=== PATIENT | female | born 1990 | race Caucasian/White ===

== ENCOUNTER → 2024-10-27 | Outpatient (CLI) | payer OTHER, SELFPAY ==
[2024-10-28 09:50] LABS: BVAG Candida Negative (Negative); Bacterial Vaginosis Markers Negative (Negative); Candida glabrata Negative (Negative); Candida krusei PCR Negative (Negative); Trichomonas Negative (Negative)
== END | disposition home or self-care (01) ==
LOC: SLDO 13:02
PROVIDERS: Referring Provider Specialist; Visit Provider Specialist
DX: B37.89 Other sites of candidiasis (principal); N76.0 Acute vaginitis; A59.01 Trichomonal vulvovaginitis
CPT/HCPCS: 81514

== ENCOUNTER 2025-03-26 17:00 | Emergency (ER) | payer OTHER, SELFPAY ==
[2025-03-26 17:07] VITALS: BP 110/74; PULSE 97; RESP 20; TEMP 36.6; O2SAT 97; BMI 31.9
--- NOTE | 2025-03-26 17:12 | XR_ITS ---
Examination: CT abdomen and pelvis without contrast. Coronal 3-D reconstructions. Sagittal 2-D reconstructions. Date and time of exam: March 26, 2025 1813 hours INDICATIONS: Right flank pain nausea today CTDI: vol (mGy): 11.7 DLP: (mGycm): 641 Technique: Axial images of the abdomen have been obtained, 3 mm slice thickness Intravenous contrast material has not been administered. Low dose protocols were performed. One or more of the following dose reduction techniques were used; automated exposure control, adjustment of the mA and/or KV according to patient size, use of iterative reconstruction technique. Findings: Mildly enlarged cardiac contour with ventricular cardiac leads satisfactory position No focal liver or splenic lesions No gallstones No pancreatic or adrenal mass No renal or ureteral calculi, no hydronephrosis Aorta normal size 8 mm fat-containing umbilical hernia Normal appendix No bowel obstruction A few loops of fluid-filled distended small bowel in the left abdomen for instance axial image 147 No diverticulitis Small uterus No bladder mass or bladder calculi Moderate disc narrowing L4-L5, L5-S1 IMPRESSION: No renal or ureteral calculi, no hydronephrosis Normal appendix No bladder mass or bladder calculi
[2025-03-26 17:43] LABS: Basophils # (Auto) 0.1 Thou/mm3 (0.0-0.2); Basophils % (Auto) 1 % (0-2.5); Eosinophils # (Auto) 0.2 Thou/mm3 (0.0-0.5); Eosinophils % (Auto) 2 % (0-10); Hematocrit 38.7 % (36.0-46.0); Hemoglobin 13.6 g/dL (12.0-16.0); Immature Granulocytes % (Auto) 0 % (0-0); Immature Granulocytes Auto 0.03 Thou/mm3 (0.00-0.00); Lymphocytes # (Auto) 3.1 Thou/mm3 (1.0-4.8); Lymphocytes % (Auto) 29 % (10-50); Mean Corpuscular HGB Conc 35.1 g/dl (31.0-37.0); Mean Corpuscular Volume 85 fL (80-100); Monocytes # (Auto) 0.8 Thou/mm3 (0.0-0.8); Monocytes % (Auto) 7 % (0-12); Neutrophils # (Auto) 6.5 Thou/mm3 (1.8-7.7); Neutrophils % (Auto) 61 % (37-80); Nucleated Red Blood Cell % 0 /100 WBC (0); Platelet Count 268 Thou/mm3 (140-440); RDW Standard Deviation 42.9 fL (36.4-46.3); Red Blood Count 4.54 Miln/mm3 (4.00-5.20); White Blood Count 10.7 Thou/mm3 (3.6-11.0)
[2025-03-26 17:43] LABS: Collection Type, Urine Clean Catch; RBC,Urine 0 /hpf (0-3)
--- NOTE | 2025-03-26 17:47 | XR_ITS ---
Examination: Pelvic ultrasound, transabdominal, complete Technique: Transabdominal ultrasound of the pelvis performed using grayscale imaging Date and time of exam: March 26, 2025 1842 hours INDICATIONS: Right pelvic pain beginning 2 days ago FINDINGS: Uterus 6.6 cm endometrial stripe 0.5 cm No uterine mass or intrauterine gestation Right ovary 4.2 cm arterial flow, 3.0 x 2.2 cm cyst Left ovary 3.7 cm arterial flow, 11 mm follicular cyst IMPRESSION: No uterine mass or intrauterine gestation Right ovarian simple cyst 3.0 x 2.0 x 2.2 cm
[2025-03-26 17:48] LABS: Bacteria,Urine 4+; Bilirubin,Urine Negative (Negative); Blood,Urine Negative (Negative); Color,Urine Lt-Yellow (Lt Yel-Yel); Glucose, Urine 4+ (Negative); Ketones,Urine Negative (Negative); Leukocyte Esterase,Urine Negative (Negative); Nitrite,Urine Negative (Negative); Protein,Urine Negative (Neg - Trace); Specific Gravity,Urine 1.018 (1.001-1.035); Squamous Epithelial Cell,Urine 4 /hpf (0-5); Urobilinogen,Urine Negative mg/dL (0.0-1.0); WBC,Urine 5 /hpf (0-5)
[2025-03-26 17:49] LABS: Clarity,Urine Cloudy (Clear/Hazy); Culture Indicated,Urine Yes; HCG Qualitative,Urine Negative
--- NOTE | 2025-03-26 17:50 | PD.EDADULT ---
ED General RME/HPI General Chief complaint: Back Pain/Injury Stated complaint: RIGHT FLANK PAIN, NAUSEA Time Seen by Provider: 03/26/25 18:08 Arrival date/time: 03/26/25 17:00 Limitations: no limitations RME / HPI RME / HPI narrative: DR. KENT MAIN ED EVALUATION: 34 year old female presents to the Emergency Department with complaint of sudden onset of right flank pain that radiates to her right groin area. No dysuria. No fevers or chills. No kidney stones history. No other symptoms reported at this time. PMHx: Endometriosis, ovarian cysts, [place] in 2016, CHF, pacemaker. Social Hx: No tobacco, alcohol, or substance use. Related Data Home Medications ?Medication ?Instructions ?Recorded ?Confirmed alprazolam 1 mg tablet (Xanax) 1 mg PO Q8HR PRN Anxiety 04/15/24 05/26/24 atorvastatin 80 mg tablet (Lipitor) 80 mg PO QPM 04/15/24 05/26/24 bupropion HCl 150 mg 24 hr tablet, 150 mg PO DAILY 04/15/24 05/26/24 extended release (Wellbutrin XL) empagliflozin 10 mg tablet 10 mg PO QAM 04/15/24 05/26/24 (Jardiance) isosorbide mononitrate 30 mg 30 mg PO QDAY 04/15/24 05/26/24 tablet,extended release 24 hr metoprolol tartrate 25 mg tablet 25 mg PO BID 04/15/24 05/26/24 mirtazapine 15 mg tablet (Remeron) 7.5 mg PO HS 04/15/24 05/26/24 nitroglycerin 0.4 mg sublingual 0.4 mg buccal [id number] PRN Chest 04/15/24 05/26/24 tablet Pain prasugrel HCl 10 mg tablet 10 mg DAILY 04/15/24 05/26/24 (Effient) sacubitril 24 mg-valsartan 26 mg 0.5 tab PO BID 04/15/24 05/26/24 tablet (Entresto) zolpidem 5 mg tablet (Ambien) 5 mg PO HS 04/15/24 05/26/24 venlafaxine 75 mg tablet 75 mg PO BID 05/26/24 05/26/24 Previous Rx's ?Medication ?Instructions ?Recorded aspirin 81 mg tablet,delayed 81 mg PO QDAY #30 tabs 05/27/24 release acetaminophen 300 mg-codeine 30 mg 2 tab PO Q8H PRN pain #20 tabs 03/26/25 tablet cefdinir 300 mg capsule 300 mg PO BID #14 caps 03/26/25 ondansetron 4 mg disintegrating 4 mg PO TID PRN nausea and 03/26/25 tablet vomiting 30 days #10 tabs Allergies Allergy/AdvReac Type Severity Reaction Status Date / Time gluten Allergy Unknown INTESTINES Verified 08/20/24 15:15 SHUT DOWN Flour Allergy Unknown INTESTINES Uncoded 10/29/21 14:32 SHUT DOWN WHEAT CONTAINING PROD Allergy Unknown INTESTINES Uncoded 10/29/21 14:32 SHUT DOWN Review of Systems Review of Systems Systems Reviewed: All systems reviewed, normal except as documented Narrative Review of Systems: GEN: No fever, no chills, no weight loss EYES: No discharge, no visual changes, no pain HEENT: No ear pain, no congestion, no sore throat PULM: No shortness of breath, no cough, no congestion CV: No chest pain, no dyspnea on exertion, no palpitations GI: No nausea, no vomiting, no diarrhea, + right flank pain that radiates to her right groin area, no constipation : No frequency, no urgency and no dysuria MUSC/SKEL: No joint pain, no back pain SKIN: No rash PSYCH: No hallucinations, no depression HEME/LYMPH: No easy bleeding or bruising tendencies NEURO: No weakness, no headache Past Medical History Past Medical History CARDIAC: Positive Cardiac Disorders, Myocardial Infarction, Hypercholesterolemia, Cardiomyopathy and Hypertension GASTROINTESTINAL: Positive Gastrointestinal Disorders and Celiac Disease ENDOCRINE: Positive Diabetes Mellitus Type 2 PSYCHO/SOCIAL: Positive Depression and Anxiety OTHER HISTORY: Positive Chicken Pox Family History FAMILY HISTORY: Positive Family Psychiatric Problems, Family Respiratory Disorders, Family Cardiac Disorders and Family Surgery Surgical History SURGICAL: Positive Coronary Stent and Angiogram Social History SMOKING STATUS: Never smoker SUBSTANCE USE: does not use ALCOHOL: Never ED Exam General Limitations: Present no limitations General appearance: Present alert, in distress (complains of pain) and other (tearful and anxious) Head Head exam: Present atraumatic, normocephalic and normal inspection Eye Eye exam: Present normal appearance, PERRL and EOMI ENT ENT exam: Present normal exam, normal oropharynx and mucous membranes moist Neck Neck exam: Present normal inspection, full ROM and trachea midline Chest Chest inspection: Present normal inspection and symmetric chest wall rise Respiratory Respiratory exam: Present normal lung sounds bilaterally Cardiovascular Cardiovascular exam: Present regular rate, normal rhythm and normal heart sounds Abdominal Exam Abdominal exam: Present soft and normal bowel sounds; Absent tenderness Extremities Exam Extremities exam: Present normal inspection and full ROM Back Exam Back exam: Present normal inspection and full ROM; Absent tenderness, CVA tenderness (R) or CVA tenderness (L) Neurological Exam Neurological exam: Present alert, oriented X3 and CN II-XII intact Psychiatric Psychiatric exam: Present normal affect and normal mood Skin Skin exam: Present warm, dry, intact and normal color Course Quality Measures none Orders Category Date Time Status Insert IV NOW Care 03/26/25 17:[address] abdomen pelvis wo con Stat Exams 03/26/25 17:12 Completed US pelvic complete Stat Exams 03/26/25 17:47 Completed CBC Stat Lab 03/26/25 17:34 Completed Comprehensive Metabolic Panel Stat Lab 03/26/25 17:34 Completed HCG Qualitative,Urine Stat Lab 03/26/25 17:35 Completed Lipase Stat Lab 03/26/25 17:34 Completed Magnesium Stat Lab 03/26/25 17:34 Completed UA, C/S IF [Urinalysis, C/S if Indicated] Stat Lab 03/26/25 17:35 Completed Urine Culture Stat Lab 03/26/25 17:35 Completed HYDROcodone*/APAP 5/325 [[place] 5/325] Med 03/26/25 19:39 Discontinued 2 tab PO X1 ONE Ketorolac Inj [Toradol Inj] Med 03/26/25 18:09 Discontinued 30 mg IVP X1 ONE Morphine Inj Med 03/26/25 17:47 Discontinued 4 mg IVP X1 ONE Ondansetron Inj [Zofran Inj] Med 03/26/25 17:47 Discontinued 4 mg IVP X1 ONE Sodium Chloride 0.9% 1000 ml [Ns] 1,000 ml Med 03/26/25 17:47 Discontinued IV 999 mls/hr cefTRIAXone/D5w 1gm IV premix [Rocephin/D5w 1gm IV Med 03/26/25 18:09 Discontinued premix] 1 gm in 50 ml IV X1 Vital Signs Vital signs: Vital Signs Temperature 97.9 F 03/26/25 17:07 Pulse Rate 97 03/26/25 17:07 Respiratory Rate 20 03/26/25 17:07 Blood Pressure 110/74 03/26/25 17:07 Pulse Oximetry (%) 97 03/26/25 17:07 Oxygen Delivery Method Room Air 03/26/25 17:07 Discharge Plan Plan Patient Disposition: HOME (Self Care) Prescriptions/Referrals Prescriptions/Med Rec: New acetaminophen-codeine 300-30 mg tablet 2 tab PO Q8H MDD 6 PRN (Reason: pain) Qty: 20 0RF ondansetron 4 mg tablet,disintegrating 4 mg PO TID PRN (Reason: nausea and vomiting) 30 Days Qty: 10 0RF cefdinir 300 mg capsule 300 mg PO BID Qty: 14 0RF No Action atorvastatin [Lipitor] 80 mg Tablet 80 mg PO QPM alprazolam [Xanax] 1 mg Tablet 1 mg PO Q8HR PRN (Reason: Anxiety) isosorbide mononitrate 30 mg Tablet Extended Release 24 Hr 30 mg PO QDAY nitroglycerin 0.4 mg Tablet, Sublingual 0.4 mg BUCCAL [id number] PRN (Reason: Chest Pain) zolpidem [Ambien] 5 mg Tablet 5 mg PO HS mirtazapine [Remeron] 15 mg tablet 7.5 mg PO HS Patient Comments: TAKE 1 TABLET BY MOUTH AT BEDTIME bupropion HCl [Wellbutrin XL] 150 mg Tablet Extended Release 24 Hr 150 mg PO DAILY metoprolol tartrate 25 mg Tablet 25 mg PO BID prasugrel HCl [Effient] 10 mg Tablet 10 mg DAILY Jardiance 10 mg Tablet 10 mg PO QAM Entresto 24-26 mg Tablet 0.5 tab PO BID venlafaxine 75 mg Tablet 75 mg PO BID aspirin 81 mg Tablet,Delayed Release (Dr/Ec) 81 mg PO QDAY Qty: 30 0RF Referrals: No Primary/Family,Physician [Primary Care Provider] - In 1 week Problem List Clinical Impression: UTI (urinary tract infection), Right ovarian cyst Patient/Caregiver Discharge Instructions Discharge Activity: activity as tolerated Education Materials: ED Ovarian Cyst, ED Pyelonephritis, Female (Adult) Additional Instructions: Discharge instructions from Dr. Calzada: 1. After evaluation, you have UTI and early kidney infection. 2. Take cefdinir to kill the germs causing the infection.? Increase oral fluid to flush it out.? Maintain clear urine.? If dark or yellow, increase oral fluid. 3. Zofran for nausea/vomiting.? 4. You also have a large right ovarian cyst, size of a golf ball (3 cm). 5. Toradol and Tylenol with codeine for pain. 6. See a private doctor on 03/29/2025 for recheck and further care. Ask to review all test results and official radiology reports, to make sure you receive all necessary follow-ups and monitoring, including final urine culture results from today. 7. Seek immediate medical care with worsening, fever, or with any concerns. Print Language: Macedonian Stand Alone Forms: [facility] Award Info., Patient Portal Info Letter [facility] Narrative Sign out note: 1800: Patient was signed out to Dr. Calzada. Past medical, surgical, social and family history reviewed. Vitals and home medications reviewed. Results and treatment plan discussed. They will assume the care of the patient at this time and will follow the patient, pending diagnostic tests and final disposition. [facility] hospital course: I, Caryn Flores, galo scribing for and in the presence of Dr. Kent. Clinical Information Provided by patient Medical Records Reviewed [facility] Meds/Rx Considered, not Ordered None Labs/Rad/Tests considered, not Ordered None Chronic Illness/Social Conditions Add or document further as needed: Endometriosis, ovarian cysts, [place] in 2016, CHF, pacemaker. EKG EKG not done Lab Interpretation Lab(s) interpretation(s): pending diagnostic tests Imaging Provider imaging interpretation(s): pending Medication Administration(s) Medication Administration History Discontinued Medications Hydrocodone Bitart/Acetaminophen (Hydrocodone/Apap 5/325 Tablet) 2 tab PO X1 ONE Stop: 03/26/25 19:40 Last Admin: 03/26/25 19:45 Dose: 2 tab Documented By: YOLA Sodium Chloride (Ns) 1,000 mls @ 999 mls/hr IV .Q1H1M ONE Stop: 03/26/25 18:47 Last Infusion: 03/26/25 19:35 Dose: Infused Documented By: Admin: 03/26/25 18:33 Dose: 999 mls/hr Documented By: GABBY Ceftriaxone Sodium/Dextrose (Rocephin/D5w 1gm Iv Premix) 1 gm in 50 mls @ 100 mls/hr IV X1 ONE Stop: 03/26/25 18:38 Last Infusion: 03/26/25 19:34 Dose: Infused Documented By: Admin: 03/26/25 18:42 Dose: 100 mls/hr Documented By: GABBY Ketorolac Tromethamine (Ketorolac Inj 30 Mg/Ml Vial) 30 mg IVP X1 ONE Stop: 03/26/25 18:10 Last Admin: 03/26/25 18:38 Dose: 30 mg Documented By: GABBY Morphine Sulfate (Morphine Sulf Inj 10 Mg/Ml Vial) 4 mg IVP X1 ONE Stop: 03/26/25 17:48 Last Admin: 03/26/25 18:07 Dose: 4 mg Documented By: GABBY Ondansetron HCl (Ondansetron Inj 2 Mg/Ml Inj 2 Ml) 4 mg IVP X1 ONE; Protocol Stop: 03/26/25 17:48 Last Admin: 03/26/25 18:07 Dose: 4 mg Documented By: GABBY Diagnosis Differential diagnosis: Kidney stones, pylonephritis, UTI Most likely dx, and/or detailed dx discussion: No final disposition plan at this time, still pending diagnostic tests. Patient signout to the felling machine operator provider. Dispositon Disposition: other (Patient signed out to Dr. Calzada, pending diagnostic tests and final disposition.)
[2025-03-26 17:59] LABS: Alanine Aminotransferase 27 U/L (10-49); Albumin, Serum 4.5 gm/dL (3.5-5.0); Albumin/Globulin Ratio 2.3 (1.2-2.2); Alkaline Phosphatase 124 U/L (46-116); Anion Gap 10 (7-16); BUN/Creatinine Ratio 11 Ratio (12-20); Bilirubin,Total 0.4 mg/dL (0.3-1.2); Blood Urea Nitrogen 10 mg/dL (9-23); Calcium 9.7 mg/dL (8.3-10.6); Calcium (Corrected) 9.7 mg/dL (8.5-10.1); Carbon Dioxide 26.5 mMol/L (20.0-31.0); Chloride 104 mMol/L (98-107); Creatinine (Component) 0.9 mg/dL (0.6-1.3); Estimated Creatinine Clearance 98.5 mL/min (>60); Glucose 90 mg/dL (74-106); Lipase 36 U/L (12-53); Osmolality,Calculated 278 (275-295); Potassium 3.9 mMol/L (3.4-5.1); Sodium 140 mMol/L (136-145); Total Protein 6.5 gm/dL (5.7-8.2); eGFR > 60 See Note
[2025-03-26] MEDS: MORPHINE SULF INJ 10 MG/ML VIAL 4 MG IVP (18:07)
[2025-03-26] MEDS: ONDANSETRON INJ 2 MG/ML INJ 2 ML 4 MG IVP (18:07)
--- NOTE | 2025-03-26 18:13 | PD.EDADDENDU ---
Emergency Room Addendum <Amy Oreilly - Last Filed: 03/26/25 19:40> Addendum Narrative: I took over the care from previous shift physician at 6 AM on 03/26/2025. See previous notes for complete H & P and ED course. I reviewed all diagnostic test results. My review of the CT report is NAD. My review of the US report is No uterine mass or intrauterine gestation. Right ovarian simple cyst 3.0 x 2.0 x 2.2 cm. Blood tests and urine tests show 4+ urine glucose and 4+ bacteria, but otherwise unremarkable. Diagnoses include: UTI, Right Ovarian Cyst Treatment here included IV fluid, Toradol, Rocephin, Morphine, Zofran, [place]. Based on my best medical judgment, made decision no further evaluation or treatment indicated at this time. Patient understands and agrees to the discharge instructions customized and printed, see below. Discharge instructions from Dr. Calzada: 1. After evaluation, you have UTI and early kidney infection. 2. Take cefdinir to kill the germs causing the infection. Increase oral fluid to flush it out. Maintain clear urine. If dark or yellow, increase oral fluid. 3. Zofran for nausea/vomiting. 4. You also have a large right ovarian cyst, size of a golf ball (3 cm). 5. Toradol and Tylenol with codeine for pain. 6. See a private doctor on 03/29/2025 for recheck and further care. Ask to review all test results and official radiology reports, to make sure you receive all necessary follow-ups and monitoring, including final urine culture results from today. 7. Seek immediate medical care with worsening, fever, or with any concerns. Saeed Calzada MD <Saeed Calzada MD - Last Filed: 03/26/25 19:50> Addendum Narrative: I took over the care from previous shift physician at 6 AM on 03/26/2025. See previous notes for complete H & P and ED course. I reviewed all diagnostic test results. My review of the CT report is NAD. My review of the US report is Right ovarian simple cyst 3.0 x 2.0 x 2.2 cm. Blood tests and urine tests unremarkable except UA showing 4+ bacteria. Diagnoses include: UTI, Right Ovarian Cyst. Treatment here included IV fluid, Toradol, Rocephin, Morphine, Zofran, [place]. Significant tremor noted. Recommended outpatient management. Based on my best medical judgment, made decision no further evaluation or treatment indicated at this time. Patient understands and agrees to the discharge instructions customized and printed, see below. Discharge instructions from Dr. Calzada: 1. After evaluation, you have UTI and early kidney infection. 2. Take cefdinir to kill the germs causing the infection. Increase oral fluid to flush it out. Maintain clear urine. If dark or yellow, increase oral fluid. 3. Zofran for nausea/vomiting. 4. You also have a large right ovarian cyst, size of a golf ball (3 cm). 5. Toradol and Tylenol with codeine for pain. 6. See a private doctor on 03/29/2025 for recheck and further care. Ask to review all test results and official radiology reports, to make sure you receive all necessary follow-ups and monitoring, including final urine culture results from today. 7. Seek immediate medical care with worsening, fever, or with any concerns. Saeed Calzada MD
[2025-03-26 18:29] VITALS: BP 106/68; PULSE 77; RESP 16; TEMP 36.8; O2SAT 97
[2025-03-26] MEDS: SODIUM CHLORIDE 0.9% 1000 ML 1,000 ML 999 ML IV (18:33)
[2025-03-26] MEDS: KETOROLAC INJ 30 MG/ML VIAL IVP (18:38)
[2025-03-26] MEDS: cefTRIAXone/D5w 1gm IV premix 1 GM/50 ML BAG IV (18:42)
[2025-03-26 19:03] VITALS: BP 107/61; RESP 18; O2SAT 97
[2025-03-26] MEDS: HYDROcodone/APAP 5/325 TABLET 2 TAB PO (19:45)
--- NOTE | 2025-03-26 20:05 | PC.NURSE ---
report received at 1910. pt appears in NAD.
== END 2025-03-26 20:08 | disposition home or self-care (01) ==
PROVIDERS: Nurse Practitioner Primary Care; Emergency Provider Emergency Medicine
DX: N39.0 Urinary tract infection, site not specified (principal); N83.291 Other ovarian cyst, right side; R10.9 Unspecified abdominal pain; R11.0 Nausea
CPT/HCPCS: 36415; 74176; 76856; 80053; 81001; 81025; 83690; 83735; 85025; 87086; 96365; 96375; 99284; J0696; J1885; J2270; J2405; J7030; A9270

== ENCOUNTER 2025-04-28 10:19 | Emergency (ER) | payer OTHER, SELFPAY ==
--- NOTE | 2025-04-28 10:24 | EKG_ITS ---
[facility] Test Date: 2025-04-28 Pat Name: MELITON BONILLA Department: Room: - Gender: Female Workers Compensation Analyst: : 1990 Requested By: Edson Alberto Order Number: [id number] Reading MD: Edson Alberto Measurements Intervals [place] Rate: 91 P: 42 FL: 183 QRS: 95 QRSD: 97 T: 90 QT: 365 QTc: 450 Interpretive Statements SINUS RHYTHM ANTEROLATERAL MYOCARDIAL INFARCTION , OF INDETERMINATE AGE [40+ ms Q WAVE IN I/aVL/V3-V6] Compared to ECG 08/20/2024 15:33:15 No significant changes /store/S0/[id number]/[id number].pdf
[2025-04-28 10:25] VITALS: BP 113/74; PULSE 102; RESP 18; TEMP 36.9; O2SAT 98; BMI 31.4
--- NOTE | 2025-04-28 11:05 | XR_ITS ---
Examination: AP chest single view Technique one AP portable upright chest single view Date and time: April 28, 2025 1113 hours INDICATIONS: Chest pain weakness dizziness and vomiting beginning 2 days ago. FINDINGS: Normal heart size Cardiac leads satisfactory position. No aspiration pneumonia. No pulmonary edema IMPRESSION: No aspiration pneumonia
--- NOTE | 2025-04-28 11:18 | PD.EDADULT ---
ED General RME/HPI General Chief complaint: Chest Pain Stated complaint: Chest pain since 0000 Time Seen by Provider: 04/28/25 10:40 Arrival date/time: 04/28/25 10:19 RME / HPI RME / HPI narrative: DR. SANDOVAL MAIN ED EVALUATION: 34 year old female with past medical history significant for cardiomyopathy, x2 cardiac stents in place, defibrillator placed post MA in 08/2023 presents to the Emergency Department accompanied by significant other with complaint of chest pain onset 12 AM today; pain went away and then came back this morning again. Patient states her chest pain starts in the mid area and radiates to her left chest area and mid back area. Patient reports that her pain began last night at 12 AM but it got better and she went to sleep but then again this morning she felt pain was worsening. Associated symptoms include nausea and dizziness. She states her systolic blood pressure typically runs in the 80-90's. Patient denies any of the following: fevers, chills, cough, cold, congestion, or any other symptoms at this time. Related Data Home Medications ?Medication ?Instructions ?Recorded ?Confirmed alprazolam 1 mg tablet (Xanax) 1 mg PO Q8HR PRN Anxiety 04/15/24 05/26/24 atorvastatin 80 mg tablet (Lipitor) 80 mg PO QPM 04/15/24 05/26/24 bupropion HCl 150 mg 24 hr tablet, 150 mg PO DAILY 04/15/24 05/26/24 extended release (Wellbutrin XL) empagliflozin 10 mg tablet 10 mg PO QAM 04/15/24 05/26/24 (Jardiance) isosorbide mononitrate 30 mg 30 mg PO QDAY 04/15/24 05/26/24 tablet,extended release 24 hr metoprolol tartrate 25 mg tablet 25 mg PO BID 04/15/24 05/26/24 mirtazapine 15 mg tablet (Remeron) 7.5 mg PO HS 04/15/24 05/26/24 nitroglycerin 0.4 mg sublingual 0.4 mg buccal [id number] PRN Chest 04/15/24 05/26/24 tablet Pain prasugrel HCl 10 mg tablet 10 mg DAILY 04/15/24 05/26/24 (Effient) sacubitril 24 mg-valsartan 26 mg 0.5 tab PO BID 04/15/24 05/26/24 tablet (Entresto) zolpidem 5 mg tablet (Ambien) 5 mg PO HS 04/15/24 05/26/24 venlafaxine 75 mg tablet 75 mg PO BID 05/26/24 05/26/24 Previous Rx's ?Medication ?Instructions ?Recorded aspirin 81 mg tablet,delayed 81 mg PO QDAY #30 tabs 05/27/24 release acetaminophen 300 mg-codeine 30 mg 2 tab PO Q8H PRN pain #20 tabs 03/26/25 tablet cefdinir 300 mg capsule 300 mg PO BID #14 caps 03/26/25 Allergies Allergy/AdvReac Type Severity Reaction Status Date / Time gluten Allergy Unknown INTESTINES Verified 04/28/25 10:22 SHUT DOWN Flour Allergy Unknown INTESTINES Uncoded 04/28/25 10:22 SHUT DOWN WHEAT CONTAINING PROD Allergy Unknown INTESTINES Uncoded 04/28/25 10:22 SHUT DOWN Review of Systems Review of Systems Systems Reviewed: All systems reviewed, normal except as documented Past Medical History Past Medical History CARDIAC: Positive Cardiac Disorders, Myocardial Infarction, Hypercholesterolemia, Cardiomyopathy and Hypertension GASTROINTESTINAL: Positive Gastrointestinal Disorders and Celiac Disease ENDOCRINE: Positive Diabetes Mellitus Type 2 PSYCHO/SOCIAL: Positive Depression and Anxiety OTHER HISTORY: Positive Chicken Pox Family History FAMILY HISTORY: Positive Family Psychiatric Problems, Family Respiratory Disorders, Family Cardiac Disorders and Family Surgery Surgical History SURGICAL: Positive Coronary Stent and Angiogram Social History SMOKING STATUS: Never smoker SUBSTANCE USE: does not use ALCOHOL: Never ED Exam Narrative Physical exam: Physical Exam:? General:?? ? The vital signs were reviewed. ? ? The patient is non-toxic, in no apparent distress and appears healthy with a patent airway, no respiratory distress and has no apparent circulatory problems. Head & Scalp:?? ? Normocephalic, atraumatic. Face:?? ? Appears normal and is without lesions, deformity. Ears:??? Left external pinna appears normal. ? ? Right external pinna appears normal. Eyes:?? ? The sclera is anicteric.? No obvious photophobia. ? ? The Left and Right Orbit/Lid/Conjunctiva appears normal without swelling, discoloration or injection. Nose: ? ? The nose is without deformity, discharge or tenderness; Throat: ? ? Appears normal.? The mucous membranes are pink and moist without exudates, redness or mass seen.? The tongue appears normal. Neck: The neck is supple and no apparent mass or adenopathy. Chest: The chest wall is normal in size and symmetry and has no chest wall tenderness or crepitus. ? ? The patient displays normal ventilator effort without retractions, accessory muscle use and has adequate air movement bilaterally with no wheezes and no rales. ? Cardiovascular: Heart rate is a little tachycardic, at 110; patient reports her systolic BP runs low it was 92 here probably due to her cardiomyopathy. Gastrointestinal: The abdomen appears normal.? No obvious hernias or mass. The abdomen is soft and benign, non-distended, with no pain, no guarding and no rebound tenderness.? Bowel sounds are present and normal sounding.? No CVA tenderness. Genitourinary: Back/Spine: Extremities/Musculoskeletal/lymphatic:? ? ? The bilateral upper and lower extremities are warm. There is no evidence of arterial? insufficiency. There is no evidence of venous insufficiency/edema. The patient spontaneously moves bilateral upper and lower extremities with no pain and no limitation of movement.? There is no apparent, injury or trauma. Skin:? The skin is warm, dry and intact.? No rashes. No petechia. No purpura. No abnormal bruising.? The color is appropriate with no cyanosis. Mental status/Psychiatric: Mental status is appropriate for age. The patient has no apparent delusions, visual hallucinations, no apparent audible hallucinations. The patient has no apparent suicidal thoughts/ideation and no apparent homicidal thoughts/ideation. Neurological:? The patient is awake, alert, interactive, cordial, cooperative and is oriented to name and situation. The patient follows commands and answers historical question with no impairment.?? There is no visual disturbance apparent.? The pupils are equal and reactive bilaterally with normal eye movements and no diplopia The bilateral upper and lower extremities have normal strength, normal range of motion and normal functioning. The gait, station and balance appears? to be baseline with no acute change Course Quality Measures none Orders Category Date Time Status EKG (ED ONLY) *Do not use* NOW Care 04/28/25 10:24 Completed EKG (ED ONLY) *Do not use* NOW Care 04/28/25 11:36 Completed EKG (ED Only) Stat Exams 04/28/25 10:24 Draft EKG (ED Only) Stat Exams 04/28/25 11:35 Draft US abdomen limited Stat Exams 04/28/25 12:26 Completed XR chest 1V portable Stat Exams 04/28/25 11:05 Completed B-Type Natriuretic Peptide Stat Lab 04/28/25 11:21 Completed CBC Stat Lab 04/28/25 11:21 Completed Comprehensive Metabolic Panel Stat Lab 04/28/25 11:21 Completed Drug Screen,Urine Stat Lab 04/28/25 12:56 Completed HCG Qualitative,Urine Stat Lab 04/28/25 12:56 Completed Lipase Stat Lab 04/28/25 11:21 Completed Magnesium Stat Lab 04/28/25 11:21 Completed Troponin I Stat Lab 04/28/25 11:21 Completed Troponin I Stat Lab 04/28/25 14:38 Completed Urinalysis Stat Lab 04/28/25 12:56 Completed Urinalysis, C/S if Indicated Stat Lab 04/28/25 12:56 Completed Morphine Inj Med 04/28/25 11:35 Discontinued 2 mg IVP X1 ONE Morphine Inj Med 04/28/25 12:28 Discontinued 2 mg IVP X1 ONE Ondansetron Inj [Zofran Inj] Med 04/28/25 11:35 Discontinued 4 mg IVP X1 ONE Vital Signs Vital signs: Vital Signs Temperature 98.4 F 04/28/25 10:25 Pulse Rate 102 H 04/28/25 10:25 Respiratory Rate 18 04/28/25 10:25 Blood Pressure 113/74 04/28/25 10:25 Pulse Oximetry (%) 98 04/28/25 10:25 Oxygen Delivery Method Room Air 04/28/25 10:25 Discharge Plan Plan Patient Disposition: HOME (Self Care) Prescriptions/Referrals Prescriptions/Med Rec: No Action atorvastatin [Lipitor] 80 mg Tablet 80 mg PO QPM alprazolam [Xanax] 1 mg Tablet 1 mg PO Q8HR PRN (Reason: Anxiety) isosorbide mononitrate 30 mg Tablet Extended Release 24 Hr 30 mg PO QDAY nitroglycerin 0.4 mg Tablet, Sublingual 0.4 mg BUCCAL [id number] PRN (Reason: Chest Pain) zolpidem [Ambien] 5 mg Tablet 5 mg PO HS mirtazapine [Remeron] 15 mg tablet 7.5 mg PO HS Patient Comments: TAKE 1 TABLET BY MOUTH AT BEDTIME bupropion HCl [Wellbutrin XL] 150 mg Tablet Extended Release 24 Hr 150 mg PO DAILY metoprolol tartrate 25 mg Tablet 25 mg PO BID prasugrel HCl [Effient] 10 mg Tablet 10 mg DAILY Jardiance 10 mg Tablet 10 mg PO QAM Entresto 24-26 mg Tablet 0.5 tab PO BID venlafaxine 75 mg Tablet 75 mg PO BID aspirin 81 mg Tablet,Delayed Release (Dr/Ec) 81 mg PO QDAY Qty: 30 0RF acetaminophen-codeine 300-30 mg tablet 2 tab PO Q8H MDD 6 PRN (Reason: pain) Qty: 20 0RF cefdinir 300 mg capsule 300 mg PO BID Qty: 14 0RF Referrals: See,ARVIND Wilson [Primary Care Provider] - In 1 week Problem List Clinical Impression: Chest pain, Coronary artery disease, Cardiomyopathy Patient/Caregiver Discharge Instructions Additional Instructions: Please return for reevaluation if your chest pain recurs or worsens. Contact your wood craftsman in [place] and getting a follow-up appointment. 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 She began having chest pain last night while she was on duty and now she comes in for evaluation of her chest pain. Patient describes the chest pain as right lateral chest right anterior right upper quadrant and sternal discomfort radiating or shooting around. Medical workup was initiated And she ended up having 2 troponins both were negative. Initial laboratory studies reveal a white count of 13.4 hemoglobin of 14.1 electrolytes were normal renal function is BUN is 12 creatinine is 0.9 glucose was normal transaminases were negative bilirubin was negative BNP came back at 58. Lipase was 33 urinalysis came back with 0 white cells and notes she had some concerns for a UTI and reviewed the old records of her most recent urine analysis and it was a probably contaminated specimen with your urine culture revealed mixed mars. Today's urine appears negative. Also because of the right upper quadrant tenderness we did an ultrasound that was totally negative. There was no cholelithiasis. Chest x-ray was negative. Today's chest discomfort is unclear there is not appear to be a heart attack. There were 2 EKGs done with a with no ST elevation MA. There is some subtle ST elevation in V2 which is on an old EKG and still present on the second EKG. Obviously this is normal for this patient. We discussed further imaging with a CTA to rule out PE but there is no risk factors that are apparent there is no swelling of the legs there is no pleuritic chest discomfort and she seems somewhat more comforted by all the negative results and just wants to go home. She was advised return if getting worse in any way. At 1232 hours, patient still complaining of pain to the right upper quadrant area and chest pain. She reported she had an UTI last month. ICaryn am scribing for and in the presence of Dr. Sandoval. Clinical Information Provided by patient and spouse Medical Records Reviewed [facility] Meds/Rx Considered, not Ordered None Labs/Rad/Tests considered, not Ordered None Chronic Illness/Social Conditions Add or document further as needed: Cardiomyopathy, x2 cardiac stents in place, defibrillator placed post MA in 08/2023. EKG EKG Interpretation narrative: #1 My interpretation: EKG performed at 1027 hours, sinus rhythm, rate 91, no STEMI, minimal ST elevation in V2 but old EKG from 08/20/2024 shows that is baseline, poor R wave progression #2 My interpretation: EKG performed at 1201 hours, sinus rhythm, rate 88, no STEMI, minimal ST elevation in V2 but old EKG from 08/20/2024 shows that is baseline, poor R wave progression, similar to EKG #1 Lab Interpretation Labs: see narrative above Imaging Imaging interpretation: see narrative above Radiology reports / interpretation(s): Procedure(s): XR chest 1V portable Accession Number(s): [id number] cc: Edson Sandoval MD; Tanmay Barth MD; Steve Smith~ Examination: AP chest single view Technique one AP portable upright chest single view Date and time: April 28, 2025 1113 hours INDICATIONS: Chest pain weakness dizziness and vomiting beginning 2 days ago. FINDINGS: Normal heart size Cardiac leads satisfactory position. No aspiration pneumonia. No pulmonary edema IMPRESSION: No aspiration pneumonia Dictated By: Tanmay Barth MD Procedure(s): US abdomen limited Accession Number(s): [id number] cc: Edson Sandoval MD; Tanmay Barth MD; Steve Smith~ Examination: Abdomen sonogram, Limited Date and time of exam: April 28, 2025 1244 hours INDICATIONS: Right upper abdominal pain beginning 12 hours ago Technique: Real-time wills scale transabdominal sonographic images of the upper abdomen obtained. Findings: Normal gallbladder. Normal common bile duct 0.5 cm Pancreatic head 3.0 cm Liver 13.7 cm no liver lesions Normal hepatopedal portal venous flow Patent IVC IMPRESSION: Normal gallbladder No liver lesions Dictated By: Tanmay Barth MD Medication Administration(s) Medication Administration History Discontinued Medications Morphine Sulfate (Morphine Sulf Inj 10 Mg/Ml Vial) 2 mg IVP X1 ONE Stop: 04/28/25 11:36 Last Admin: 04/28/25 11:46 Dose: 2 mg Documented By: VG Morphine Sulfate (Morphine Sulf Inj 10 Mg/Ml Vial) 2 mg IVP X1 ONE Stop: 04/28/25 12:29 Last Admin: 04/28/25 12:38 Dose: 2 mg Documented By: VG Ondansetron HCl (Ondansetron Inj 2 Mg/Ml Inj 2 Ml) 4 mg IVP X1 ONE; Protocol Stop: 04/28/25 11:36 Last Admin: 04/28/25 11:42 Dose: 4 mg Documented By: DEREK Diagnosis Differential diagnosis: MA, CAD, PE Most likely dx, and/or detailed dx discussion: Chest pain CAD Cardiomyopathy Dispositon Disposition: Discharge Home
[2025-04-28 11:29] LABS: Basophils # (Auto) 0.1 Thou/mm3 (0.0-0.2); Basophils % (Auto) 0 % (0-2.5); Eosinophils # (Auto) 0.2 Thou/mm3 (0.0-0.5); Eosinophils % (Auto) 1 % (0-10); Hematocrit 40.7 % (36.0-46.0); Hemoglobin 14.1 g/dL (12.0-16.0); Immature Granulocytes Auto 0.03 Thou/mm3 (0.00-0.00); Lymphocytes # (Auto) 2.2 Thou/mm3 (1.0-4.8); Lymphocytes % (Auto) 17 % (10-50); Mean Corpuscular HGB Conc 34.6 g/dl (31.0-37.0); Mean Corpuscular Hemoglobin 29.9 pg (25.0-35.0); Mean Corpuscular Volume 86 fL (80-100); Monocytes # (Auto) 1.1 Thou/mm3 (0.0-0.8); Monocytes % (Auto) 9 % (0-12); Neutrophils # (Auto) 9.7 Thou/mm3 (1.8-7.7); Neutrophils % (Auto) 73 % (37-80); Nucleated Red Blood Cell # 0.00 Thou/mm3 (0.00-0.00); Nucleated Red Blood Cell % 0 /100 WBC (0); Platelet Count 308 Thou/mm3 (140-440); RDW Standard Deviation 42.4 fL (36.4-46.3); Red Blood Count 4.72 Miln/mm3 (4.00-5.20); White Blood Count 13.4 Thou/mm3 (3.6-11.0)
--- NOTE | 2025-04-28 11:35 | EKG_ITS ---
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
[2025-04-28] MEDS: ONDANSETRON INJ 2 MG/ML INJ 2 ML 4 MG IVP (11:42)
[2025-04-28] MEDS: MORPHINE SULF INJ 10 MG/ML VIAL 2 MG IVP ×2 (11:46→12:38)
[2025-04-28 12:00] LABS: Alanine Aminotransferase 33 U/L (10-49); Albumin, Serum 4.6 gm/dL (3.5-5.0); Albumin/Globulin Ratio 2.4 (1.2-2.2); Alkaline Phosphatase 133 U/L (46-116); Anion Gap 11 (7-16); Aspartate Amino Transferase 22 U/L (0-34); BUN/Creatinine Ratio 13 Ratio (12-20); Bilirubin,Total 0.5 mg/dL (0.3-1.2); Blood Urea Nitrogen 12 mg/dL (9-23); Calcium 9.5 mg/dL (8.3-10.6); Calcium (Corrected) 9.5 mg/dL (8.5-10.1); Carbon Dioxide 24.9 mMol/L (20.0-31.0); Chloride 106 mMol/L (98-107); Creatinine (Component) 0.9 mg/dL (0.6-1.3); Estimated Creatinine Clearance 97.7 mL/min (>60); Globulin 1.9 gm/dL (2.3-3.5); Glucose 104 mg/dL (74-106); Lipase 33 U/L (12-53); Magnesium 1.7 mg/dL (1.6-2.6); Osmolality,Calculated 282 (275-295); Potassium 4.0 mMol/L (3.4-5.1); Sodium 142 mMol/L (136-145); Total Protein 6.5 gm/dL (5.7-8.2); Troponin I < 0.020 ng/mL (0.0-0.045); eGFR > 60 See Note
[2025-04-28 12:01] LABS: B-Type Natriuretic Peptide 58 pg/mL (0-100)
--- NOTE | 2025-04-28 12:26 | XR_ITS ---
Examination: Abdomen sonogram, Limited Date and time of exam: April 28, 2025 1244 hours INDICATIONS: Right upper abdominal pain beginning 12 hours ago Technique: Real-time wills scale transabdominal sonographic images of the upper abdomen obtained. Findings: Normal gallbladder. Normal common bile duct 0.5 cm Pancreatic head 3.0 cm Liver 13.7 cm no liver lesions Normal hepatopedal portal venous flow Patent IVC IMPRESSION: Normal gallbladder No liver lesions
[2025-04-28 13:07] LABS: Collection Type, Urine Clean Catch; RBC,Urine 0 /hpf (0-3); WBC,Urine 0 /hpf (0-5)
[2025-04-28 13:25] LABS: HCG Qualitative,Urine Negative
[2025-04-28 13:27] LABS: Bilirubin,Urine Negative (Negative); Blood,Urine Negative (Negative); Clarity,Urine Clear (Clear/Hazy); Color,Urine Lt-Yellow (Lt Yel-Yel); Culture Indicated,Urine Not Indicated; Glucose, Urine 4+ (Negative); Ketones,Urine Negative (Negative); Leukocyte Esterase,Urine Negative (Negative); Nitrite,Urine Negative (Negative); PH,Urine 7.0 (5.0-7.0); Protein,Urine Negative (Neg - Trace); Specific Gravity,Urine 1.016 (1.001-1.035); Squamous Epithelial Cell,Urine < 1 /hpf (0-5); Urobilinogen,Urine Negative mg/dL (0.0-1.0)
[2025-04-28 13:35] LABS: Amphetamine/Methamp Scrn,U Negative (Negative); Barbiturate Screen,Urine Negative (Negative); Benzodiazepines Screen,Urine Positive (Negative); Benzoylecgonine Screen, Ur Negative (Negative); Fentanyl Screen,Urine Negative (Negative); Opiate Screen,Urine Positive (Negative); THC Screen,Urine Negative (Negative)
[2025-04-28 15:01] LABS: Troponin I < 0.020 ng/mL (0.0-0.045)
[2025-04-28 16:50] VITALS: PULSE 72; RESP 20; O2SAT 96
== END 2025-04-28 16:56 | disposition home or self-care (01) ==
PROVIDERS: Emergency Provider Emergency Medicine; PCP Nurse Practitioner Family
DX: R07.9 Chest pain, unspecified (principal); I25.10 Atherosclerotic heart disease of native coronary artery without angina pectoris; I42.9 Cardiomyopathy, unspecified; I25.2 Old myocardial infarction
CPT/HCPCS: 36415; 71045; 76705; 80053; 80307; 81001; 81025; 83690; 83735; 83880; 84484; 85025; 93005; 96374; 96375; 96376; 99284; J2270; J2405

== ENCOUNTER 2025-07-10 08:45 | Emergency (ER) | payer OTHER, SELFPAY ==
[2025-07-10 08:47] VITALS: BMI 29.7
--- NOTE | 2025-07-10 08:47 | EKG_ITS ---
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
[2025-07-10 08:54] VITALS: BP 103/70; PULSE 79; RESP 18; TEMP 37.2; O2SAT 99
--- NOTE | 2025-07-10 08:56 | PD.EDRME ---
Rapid Medical Screening Exam E Arrival date/time: 07/10/25 08:45 Chief Complaint: Chest Pain Time Seen by Provider: 07/10/25 08:55 Vital signs: Vital Signs Temperature 98.9 F 07/10/25 08:54 Pulse Rate 79 07/10/25 08:54 Respiratory Rate 18 07/10/25 08:54 Blood Pressure 103/70 07/10/25 08:54 Pulse Oximetry (%) 99 07/10/25 08:54 Oxygen Delivery Method Room Air 07/10/25 08:54 [facility] Narrative: Patient believes her defibrillator went off this morning. She felt a shock to left chest radiating to left neck while showering, now feeling dizzy and anxious.
--- NOTE | 2025-07-10 08:57 | XR_ITS ---
Examination: AP chest single view Technique: AP portable semiupright chest single view Date and time: July 10, 2025 0932 hrs., Comparison April 28, 2025 Indications: Chest pain today. Findings: No significant cardiac enlargement Unipolar ventricular cardiac lead satisfactory position. No pneumonia or pulmonary edema. Impression: No pneumonia or pulmonary edema
--- NOTE | 2025-07-10 09:19 | XR_ITS ---
Examination: CTA carotids with intravenous contrast CTA brain, head with intravenous contrast. 2-D sagittal, coronal reconstructions. 3-D reconstructions. Exam date and time: July 10, 2025, 1040 hrs. Indications: Dizziness this morning followed by a defibrillator shock CTDI: vol (mGy) 32.8 DLP: (mGycm) 359 Technique: Multiple CTA axial brain, head carotid images post intravenous contrast injection 75 cc, Isovue-370. 2-D sagittal, coronal reconstructions. 3-D reconstructions, 3-D post processing including vascular maximum intensity projection images. Low dose protocols were performed. One or more of the following dose reduction techniques were used; automated exposure control, adjustment of the mA and/or KV according to patient size, use of iterative reconstruction technique. Findings: No common carotid carotid bifurcation or internal carotid artery significant stenoses Mildly dominant left vertebral artery in the neck with no critical stenoses Intracranial vertebral arteries basilar artery posterior cerebral branches fill with no large vessel occlusions Petrous juxtasellar portions internal carotid arteries intact M1 segments middle cerebral arteries middle cerebral artery trifurcation vessels and anterior cerebral arteries demonstrate no large vessel occlusions Impression: No significant neck arterial stenoses No cerebral large vessel arterial occlusions
--- NOTE | 2025-07-10 09:19 | XR_ITS ---
Examination: CTA chest with intravenous contrast 2-D reconstructions 3-D reconstructions, vascular Date and time of exam: July 09, 2025, 1055 hrs. Indications: Status post defibrillator shock to patient this morning followed by dizziness CTDI: vol (mGy) 20.9 DLP: (mGycm) 434 Technique: Multiple axial sections of the thorax have been obtained. 3 mm slice thickness, from below the hemidiaphragms to above the apices of the lungs. Mediastinal and lung density settings have been obtained. 2-D sagittal and coronal reconstructions. 3-D angiographic renderings, 3-D volume renderings, 3D post processing, vascular maximum intensity projections obtained. Contrast administered is 100 cc Isovue-370. Low dose protocols were performed. One or more of the following dose reduction techniques were used; automated exposure control, adjustment of the mA and/or KV according to patient size, use of iterative reconstruction technique. Findings: No thoracic aortic aneurysm dilatation or dissection No pulmonary artery filling defects Left anterior descending coronary artery stent No paratracheal tracheobronchial or bronchopulmonary adenopathy. No pneumonia or pulmonary edema or pleural disease No visualized liver or splenic lesion No gallstones No pancreatic mass No hydronephrosis Aorta normal size The osseous structures are intact Impression: Negative for pulmonary artery emboli No pneumonia or pulmonary edema or pleural disease
--- NOTE | 2025-07-10 09:23 | PD.EDCHEST ---
ED Chest Pain RME/HPI General Chief Complaint: Chest Pain Stated Complaint: DEFIBRILLATOR SHOCKED PT Time Seen by Provider: 07/10/25 08:55 Arrival date/time: 07/10/25 08:45 Limitations: no limitations RME / HPI RME / HPI narrative: Patient believes her defibrillator went off this morning. She felt a shock to left chest radiating to left neck while showering, now feeling dizzy and anxious. DR. MARTINEZ MAIN ED EVALUATION: 34-year-old female with past medical history of cardiomyopathy, MS (08/2023) status post placement of two cardiac stents, and AICD placement (10/07/24) presents to the Emergency Department after experiencing what she describes as an electrical shock while showering this morning. She reports left chest pain radiating up to the neck, followed by persistent neck pain, dizziness, nausea, and anxiety. She states it felt like her defibrillator fired. She was asymptomatic yesterday. Her AICD was last checked on 07/01. Current medications include atorvastatin (Lipitor), metoprolol, Jardiance, Ozempic, and Xanax. Family history is significant for myocardial infarction in two maternal uncles and CABG in her father. She is a former smoker, having quit after her MS in 2022. Her ejection fraction remains below 30%. Device details: Implant #1: date 10/07/2024, serial #[id number], model #[id number] Implant #2 date 10/07/2024, Serial #[id number], model #[id number] Related Data Home Medications ?Medication ?Instructions ?Recorded ?Confirmed alprazolam 1 mg tablet (Xanax) 1 mg PO Q8HR PRN Anxiety 04/15/24 05/26/24 atorvastatin 80 mg tablet (Lipitor) 80 mg PO QPM 04/15/24 05/26/24 bupropion HCl 150 mg 24 hr tablet, 150 mg PO DAILY 04/15/24 05/26/24 extended release (Wellbutrin XL) empagliflozin 10 mg tablet 10 mg PO QAM 04/15/24 05/26/24 (Jardiance) isosorbide mononitrate 30 mg 30 mg PO QDAY 04/15/24 05/26/24 tablet,extended release 24 hr metoprolol tartrate 25 mg tablet 25 mg PO BID 04/15/24 05/26/24 mirtazapine 15 mg tablet (Remeron) 7.5 mg PO HS 04/15/24 05/26/24 nitroglycerin 0.4 mg sublingual 0.4 mg buccal [id number] PRN Chest 04/15/24 05/26/24 tablet Pain prasugrel HCl 10 mg tablet 10 mg DAILY 04/15/24 05/26/24 (Effient) sacubitril 24 mg-valsartan 26 mg 0.5 tab PO BID 04/15/24 05/26/24 tablet (Entresto) zolpidem 5 mg tablet (Ambien) 5 mg PO HS 04/15/24 05/26/24 venlafaxine 75 mg tablet 75 mg PO BID 05/26/24 05/26/24 Previous Rx's ?Medication ?Instructions ?Recorded aspirin 81 mg tablet,delayed 81 mg PO QDAY #30 tabs 05/27/24 release acetaminophen 300 mg-codeine 30 mg 2 tab PO Q8H PRN pain #20 tabs 03/26/25 tablet cefdinir 300 mg capsule 300 mg PO BID #14 caps 03/26/25 Allergies Allergy/AdvReac Type Severity Reaction Status Date / Time wheat Allergy Severe Abdominal Verified 07/10/25 08:50 Pain gluten Allergy Unknown INTESTINES Verified 04/28/25 10:22 SHUT DOWN Review of Systems Review of Systems Systems Reviewed: All systems reviewed, normal except as documented Past Medical History Past Medical History CARDIAC: Positive Cardiac Disorders, Myocardial Infarction, Hypercholesterolemia, Cardiomyopathy and Hypertension GASTROINTESTINAL: Positive Gastrointestinal Disorders and Celiac Disease ENDOCRINE: Positive Diabetes Mellitus Type 2 PSYCHO/SOCIAL: Positive Depression and Anxiety OTHER HISTORY: Positive Chicken Pox Family History FAMILY HISTORY: Positive Family Psychiatric Problems, Family Respiratory Disorders, Family Cardiac Disorders and Family Surgery Surgical History SURGICAL: Positive Coronary Stent and Angiogram Social History SMOKING STATUS: Never smoker SUBSTANCE USE: does not use ALCOHOL: Never ED Exam General Limitations: Present no limitations General appearance: Present alert and in no apparent distress Head Head exam: Present atraumatic, normocephalic and normal inspection Eye Eye exam: Present normal appearance, PERRL and EOMI ENT ENT exam: Present normal exam, normal oropharynx and mucous membranes moist Neck Neck exam: Present normal inspection, full ROM and trachea midline Chest Chest inspection: Present normal inspection and symmetric chest wall rise; Absent tenderness or rash Respiratory Respiratory exam: Present normal lung sounds bilaterally; Absent respiratory distress, wheezes or stridor Cardiovascular Cardiovascular exam: Present regular rate, normal rhythm and normal heart sounds Abdominal Exam Abdominal exam: Present soft; Absent distention, tenderness, guarding, rebound or rigidity Extremities Exam Extremities exam: Present normal inspection and full ROM Back Exam Back exam: Present normal inspection and full ROM Neurological Exam Neurological exam: Present alert, oriented X3 and CN II-XII intact Psychiatric Psychiatric exam: Present normal affect and normal mood Skin Skin exam: Present warm, dry, intact and normal color Course Quality Measures none Orders Category Date Time Status CT Screening NOW Care 07/10/25 09:19 Active EKG (ED ONLY) *Do not use* NOW Care 07/10/25 08:47 Completed Insert IV NOW Care 07/10/25 10:[address] angio carotid Stat Exams 07/10/25 09:[address] angio chest Stat Exams 07/10/25 09:19 Completed CXR [XR chest 1V] Stat Exams 07/10/25 08:57 Completed EKG (ED Only) Stat Exams 07/10/25 08:47 Draft BNP [B-Type Natriuretic Peptide] Stat Lab 07/10/25 09:33 Completed CBC Stat Lab 07/10/25 09:33 Completed CMP [Comprehensive Metabolic Panel] Stat Lab 07/10/25 09:33 Completed HCG,Qualitative Serum Stat Lab 07/10/25 09:33 Completed Magnesium Stat Lab 07/10/25 09:33 Completed Partial Thromboplastin Time Stat Lab 07/10/25 09:33 Completed Prothrombin Time with INR Stat Lab 07/10/25 09:33 Completed Troponin I Stat Lab 07/10/25 09:33 Completed Troponin I Stat Lab 07/10/25 11:21 Completed Aspirin Chew Med 07/10/25 09:19 Discontinued 162 mg PO X1 ONE LORazepam [Ativan] Med 07/10/25 09:19 Discontinued 0.5 mg PO X1 ONE Magnesium Sulfate 1 gm Ivpb [Magnesium Sulfate Ivpb] Med 07/10/25 09:38 Discontinued 1 gm in 100 ml IV X1 Vital Signs Vital signs: Vital Signs Temperature 98.9 F 07/10/25 08:54 Pulse Rate 79 07/10/25 08:54 Respiratory Rate 18 07/10/25 08:54 Blood Pressure 103/70 07/10/25 08:54 Pulse Oximetry (%) 99 07/10/25 08:54 Oxygen Delivery Method Room Air 07/10/25 08:54 Chest Pain MDM Narrative MDM Narrative:: I, Caryn Flores, am scribing for and in the presence of Dr. Martinez. 34-year-old female with past medical history of cardiomyopathy, MS (08/2023) status post placement of two cardiac stents, and AICD placement (10/07/24) presents after experiencing what she describes as an electrical shock while showering this morning. She reports left chest pain radiating up to the neck, followed by persistent neck pain, dizziness, nausea, and anxiety. Her clinical picture is concerning for arrhythmia versus acute coronary syndrome leading to defibrillator activation. Workup includes EKG, serial troponins, chest X-ray, and labs including CBCs, CMPs, PTT, PT INR, and BNP. Will also order a chest CTA and a carotid CTA. Cardiology consultation is necessary given her EF <30% and high-risk cardiac history. At 0951 hours, I spoke to device medical field representative and they told us the device did not go off, no events were recorded, battery life is appropriate. Labs without any acute hematologic or significant metabolic abnormality. LFTs normal, troponin not elevated. Patient is not . Chest x-ray without evidence of pneumonia nor pulmonary edema. Patient is pending CTs and delta troponin. 1320: CT shows not abnormality, troponin is normal, and chest pain has resolved. Will discharged with cardiology follow-up as an outpatient. Patient is ready to go home. Patient data External records reviewed:: [facility] previous records Clinical information provided by:: patient Social determinants that could affect healthcare access:: other (specify) (used to smoke, quit after MS in 2022) Patient has the following chronic illnesses:: Past medical history of cardiomyopathy, MS (08/2023) status post placement of two cardiac stents, and AICD placement (10/07/24); her AICD was last checked on 07/01. Patient presents with chest pain that started today. Vital signs and exam as listed. Concern for ACS arrhythmia electrolyte abnormality aortic dissection, pulmonary embolus, among others. Immediately placed patient in resuscitation room, obtain IV access placed on a m1 armor crewman. Ordered labs EKG chest x-ray, CT angio of the chest as well as the neck. Also offered medication for symptom relief. Labs without any acute hematologic or significant metabolic abnormality. Troponin not elevated on [address] angio of the chest and neck without any acute abnormalities. EKG with nonspecific T wave changes. Not a cardiac alert. Patient symptoms resolved by the time patient presented in the emergency department. Has remained asymptomatic while in the emergency department. Discussed case with patient's inventory control specialist Dr. Patel. Given patient symptoms resolved, recommends outpatient follow-up with him in clinic this week. Patient in agreement with treatment plan. Discharged hemodynamically stable not in distress close return precautions provided. Current medications include atorvastatin (Lipitor), metoprolol, Jardiance, Ozempic, and Xanax. Family history is significant for myocardial infarction in two maternal uncles and CABG in her father. She is a former smoker, having quit after her MS in 2022. Her ejection fraction remains below 30%. Device details: Implant #1: date 10/07/2024, serial #[id number], model #[id number] Implant #2 date 10/07/2024, Serial #[id number], model #[id number] How is presenting disease/condition affected by chronic disease/condition?: exacerbated by Evaluation data The following diagnostics were reviewed and interpreted by me:: lab results, radiology exam(s) and EKG tracing(s) (My interpretation: EKG performed at 0849 hours, sinus rhythm, rate 80, normal intervals, ST elevation in V2 and V3, no reciprocal changes, no cardiac alert) Lab and/or radiology exams considered but not ordered:: none Interpretation Summary: Procedure(s): CT angio chest Accession Number(s): [id number] cc: Aleksey Zarate MD; Tanmay Barth MD; Arely aMrtinez MD~ Examination: CTA chest with intravenous contrast 2-D reconstructions 3-D reconstructions, vascular Date and time of exam: July 09, 2025, 1055 hrs. Indications: Status post defibrillator shock to patient this morning followed by dizziness CTDI: vol (mGy) 20.9 DLP: (mGycm) 434 Technique: Multiple axial sections of the thorax have been obtained. 3 mm slice thickness, from below the hemidiaphragms to above the apices of the lungs. Mediastinal and lung density settings have been obtained. 2-D sagittal and coronal reconstructions. 3-D angiographic renderings, 3-D volume renderings, 3D post processing, vascular maximum intensity projections obtained. Contrast administered is 100 cc Isovue-370. Low dose protocols were performed. One or more of the following dose reduction techniques were used; automated exposure control, adjustment of the mA and/or KV according to patient size, use of iterative reconstruction technique. Findings: No thoracic aortic aneurysm dilatation or dissection No pulmonary artery filling defects Left anterior descending coronary artery stent No paratracheal tracheobronchial or bronchopulmonary adenopathy. No pneumonia or pulmonary edema or pleural disease No visualized liver or splenic lesion No gallstones No pancreatic mass No hydronephrosis Aorta normal size The osseous structures are intact Impression: Negative for pulmonary artery emboli No pneumonia or pulmonary edema or pleural disease Dictated By: Tanmay Barth MD Procedure(s): CT angio carotid Accession Number(s): [id number] cc: Aleksey Zarate MD; Tanmay Barth MD; Arely Martinez MD~ Examination: CTA carotids with intravenous contrast CTA brain, head with intravenous contrast. 2-D sagittal, coronal reconstructions. 3-D reconstructions. Exam date and time: July 10, 2025, 1040 hrs. Indications: Dizziness this morning followed by a defibrillator shock CTDI: vol (mGy) 32.8 DLP: (mGycm) 359 Technique: Multiple CTA axial brain, head carotid images post intravenous contrast injection 75 cc, Isovue-370. 2-D sagittal, coronal reconstructions. 3-D reconstructions, 3-D post processing including vascular maximum intensity projection images. Low dose protocols were performed. One or more of the following dose reduction techniques were used; automated exposure control, adjustment of the mA and/or KV according to patient size, use of iterative reconstruction technique. Findings: No common carotid carotid bifurcation or internal carotid artery significant stenoses Mildly dominant left vertebral artery in the neck with no critical stenoses Intracranial vertebral arteries basilar artery posterior cerebral branches fill with no large vessel occlusions Petrous juxtasellar portions internal carotid arteries intact M1 segments middle cerebral arteries middle cerebral artery trifurcation vessels and anterior cerebral arteries demonstrate no large vessel occlusions Impression: No significant neck arterial stenoses No cerebral large vessel arterial occlusions Dictated By: Tanmay Barth MD Procedure(s): XR chest 1V Accession Number(s): [id number] cc: Aleksey Zarate MD; Tanmay Barth MD; Devan Abbott PA-C~ Examination: AP chest single view Technique: AP portable semiupright chest single view Date and time: July 10, 2025 0932 hrs., Comparison April 28, 2025 Indications: Chest pain today. Findings: No significant cardiac enlargement Unipolar ventricular cardiac lead satisfactory position. No pneumonia or pulmonary edema. Impression: No pneumonia or pulmonary edema Dictated By: Tanmay Barth MD Medications / Prescriptions Medications or Prescriptions considered but not ordered:: none Medication administrations:: Medication Administration History Discontinued Medications Aspirin (Aspirin 81 Mg Chew) 162 mg PO X1 ONE Stop: 07/10/25 09:20 Last Admin: 07/10/25 10:13 Dose: 162 mg Documented By: GABBY Magnesium Sulfate/Dextrose (Magnesium Sulfate Ivpb) 1 gm in 100 mls @ 100 mls/hr IV X1 ONE Stop: 07/10/25 10:37 Last Infusion: 07/10/25 11:17 Dose: Infused Documented By: Admin: 07/10/25 10:17 Dose: 100 mls/hr Documented By: GABBY Lorazepam (Lorazepam 0.5 Mg Tablet) 0.5 mg PO X1 ONE Stop: 07/10/25 09:20 Last Admin: 07/10/25 10:12 Dose: 0.5 mg Documented By: GABBY see above Consultations Consultation(s) initiated? (list below): Yes Consultation #1 (Physician, Specialty, Details): See MDM narrative above. Diagnosis Chest Pain Differential Diagnosis: other (Appropriate ICD shock for ventricular arrhythmia, acute coronary syndrome, and ICD malfunction.) Most likely diagnosis given after review of the tests above:: Chest pain chest Admission Indicated Admission indicated?: not indicated Admission Request Was there a request for admission?: No Disposition Plan Disposition Plan: Discharge Discharge Attestation Discharge Attestation: The patient and all family members were given an opportunity to ask questions and understood the discharge instructions. Discharge instructions specifically effects, indications for sooner follow up or return to the emergency department, and the expected course of current diagnosis. Patient condition: Stable Discharge Plan Plan Patient Disposition: HOME (Self Care) Prescriptions/Referrals Prescriptions/Med Rec: No Action atorvastatin [Lipitor] 80 mg Tablet 80 mg PO QPM alprazolam [Xanax] 1 mg Tablet 1 mg PO Q8HR PRN (Reason: Anxiety) isosorbide mononitrate 30 mg Tablet Extended Release 24 Hr 30 mg PO QDAY nitroglycerin 0.4 mg Tablet, Sublingual 0.4 mg BUCCAL [id number] PRN (Reason: Chest Pain) zolpidem [Ambien] 5 mg Tablet 5 mg PO HS mirtazapine [Remeron] 15 mg tablet 7.5 mg PO HS Patient Comments: TAKE 1 TABLET BY MOUTH AT BEDTIME bupropion HCl [Wellbutrin XL] 150 mg Tablet Extended Release 24 Hr 150 mg PO DAILY metoprolol tartrate 25 mg Tablet 25 mg PO BID prasugrel HCl [Effient] 10 mg Tablet 10 mg DAILY Jardiance 10 mg Tablet 10 mg PO QAM Entresto 24-26 mg Tablet 0.5 tab PO BID venlafaxine 75 mg Tablet 75 mg PO BID aspirin 81 mg Tablet,Delayed Release (Dr/Ec) 81 mg PO QDAY Qty: 30 0RF acetaminophen-codeine 300-30 mg tablet 2 tab PO Q8H MDD 6 PRN (Reason: pain) Qty: 20 0RF cefdinir 300 mg capsule 300 mg PO BID Qty: 14 0RF Referrals: Aleksey Zarate MD [Primary Care Provider, Family Practice] - In 1 week Problem List Clinical Impression: Chest pain Patient/Caregiver Discharge Instructions Education Materials: ED Chest Pain, Uncertain Cause Additional Instructions: Please follow-up with your inventory control specialist this week. Return immediately if you have recurrence of symptoms, worsening symptoms or any other symptom of concern. Print Language: Sinhala Stand Alone Forms: [facility] Award Info., Patient Portal Info Letter
[2025-07-10 09:48] LABS: Basophils # (Auto) 0.0 Thou/mm3 (0.0-0.2); Basophils % (Auto) 1 % (0-2.5); Eosinophils # (Auto) 0.1 Thou/mm3 (0.0-0.5); Eosinophils % (Auto) 2 % (0-10); Hematocrit 41.3 % (36.0-46.0); Hemoglobin 14.1 g/dL (12.0-16.0); Immature Granulocytes Auto 0.02 Thou/mm3 (0.00-0.00); Lymphocytes # (Auto) 2.5 Thou/mm3 (1.0-4.8); Lymphocytes % (Auto) 35 % (10-50); Mean Corpuscular HGB Conc 34.1 g/dl (31.0-37.0); Mean Corpuscular Hemoglobin 30.6 pg (25.0-35.0); Mean Corpuscular Volume 90 fL (80-100); Monocytes # (Auto) 0.6 Thou/mm3 (0.0-0.8); Monocytes % (Auto) 8 % (0-12); Neutrophils # (Auto) 3.8 Thou/mm3 (1.8-7.7); Neutrophils % (Auto) 54 % (37-80); Nucleated Red Blood Cell # 0.00 Thou/mm3 (0.00-0.00); Nucleated Red Blood Cell % 0 /100 WBC (0); Platelet Count 261 Thou/mm3 (140-440); RDW Standard Deviation 41.9 fL (36.4-46.3); Red Blood Count 4.61 Miln/mm3 (4.00-5.20); White Blood Count 7.1 Thou/mm3 (3.6-11.0)
[2025-07-10 09:55] LABS: INR 0.9 (0.9-1.3); Partial Thromboplastin Time 24.8 Seconds (22.0-36.0); Prothrombin Time 10.4 Seconds (9.0-12.2)
[2025-07-10 09:58] LABS: B-Type Natriuretic Peptide 47 pg/mL (0-100)
[2025-07-10 09:59] LABS: Alanine Aminotransferase 19 U/L (10-49); Albumin, Serum 4.3 gm/dL (3.5-5.0); Albumin/Globulin Ratio 2.0 (1.2-2.2); Alkaline Phosphatase 108 U/L (46-116); Anion Gap 7 (7-16); Aspartate Amino Transferase 18 U/L (0-34); BUN/Creatinine Ratio 7 Ratio (12-20); Bilirubin,Total 0.4 mg/dL (0.3-1.2); Blood Urea Nitrogen 6 mg/dL (9-23); Calcium 9.7 mg/dL (8.3-10.6); Calcium (Corrected) 9.7 mg/dL (8.5-10.1); Carbon Dioxide 27.3 mMol/L (20.0-31.0); Chloride 106 mMol/L (98-107); Creatinine (Component) 0.9 mg/dL (0.6-1.3); Estimated Creatinine Clearance 98.4 mL/min (>60); Globulin 2.1 gm/dL (2.3-3.5); Glucose 85 mg/dL (74-106); Magnesium 1.7 mg/dL (1.6-2.6); Osmolality,Calculated 276 (275-295); Potassium 3.9 mMol/L (3.4-5.1); Sodium 140 mMol/L (136-145); Total Protein 6.4 gm/dL (5.7-8.2); Troponin I < 0.020 ng/mL (0.0-0.045); eGFR > 60 See Note
--- NOTE | 2025-07-10 10:06 | PC.NURSE ---
Wafer Cutter from [employer] called and spoke to Dr. Mxa and made her aware that this Pt defibrillator did not go off.
[2025-07-10 10:09] LABS: HCG,Qualitative Serum Negative
[2025-07-10] MEDS: ASPIRIN 81 MG CHEW 162 MG PO (10:13)
[2025-07-10 10:58] VITALS: BP 100/71; PULSE 91; RESP 20; TEMP 36.7; O2SAT 96
[2025-07-10 12:58] LABS: Troponin I < 0.020 ng/mL (0.0-0.045)
[2025-07-10 13:41] VITALS: BP 120/68; PULSE 85; RESP 16; O2SAT 99
== END 2025-07-10 13:45 | disposition home or self-care (01) ==
PROVIDERS: Physician Assistant; Emergency Provider Emergency Medicine; PCP Family Medicine
DX: T82.198A Other mechanical complication of other cardiac electronic device, initial encounter (principal); R07.89 Other chest pain; R42 Dizziness and giddiness; Z87.891 Personal history of nicotine dependence; I25.2 Old myocardial infarction; I42.9 Cardiomyopathy, unspecified; E78.00 Pure hypercholesterolemia, unspecified; I10 Essential (primary) hypertension; R94.31 Abnormal electrocardiogram [ECG] [EKG]; Y84.8 Other medical procedures as the cause of abnormal reaction of the patient, or of later complication, without mention of misadventure at the time of the procedure; Y92.002 Bathroom of unspecified non-institutional (private) residence as the place of occurrence of the external cause
CPT/HCPCS: 36415; 70498; 71045; 71275; 80053; 83735; 83880; 84484; 84703; 85025; 85610; 85730; 93005; 96365; 99284; A4649; J3475; Q9967; A9270